=== PATIENT | female | born 1990 | race Caucasian/White ===

== ENCOUNTER 2022-08-13 16:06 | Outpatient (OUT) | payer OTHER, SELFPAY | END 2022-08-13 16:07 | PROVIDERS: PCP Obstetrics & Gynecology; Visit Provider Obstetrics & Gynecology | DX: N92.6 Irregular menstruation, unspecified (principal) | CPT/HCPCS: 36415; 84144 ==

== ENCOUNTER 2022-09-13 15:58 | Outpatient (OUT) | payer OTHER, SELFPAY ==
--- NOTE | 2022-09-13 16:06 | US_ITS ---
The [address] [address] Patient Name: EILEEN BOWER MRN: [id number] date: 1990 Sex: F Assigned Patient Location: US Current Patient Location: Accession/Order Number: [id number] Exam Date: 09/13/2022 16:07 Report Date: 09/14/2022 08:36 At the request of: MAURICE STONE Procedure: US OB transvaginal EXAMINATION: US OB transvaginal HISTORY: N92.5 MISSED MENSES COMPARISON: No relevant comparison available. FINDINGS: GESTATIONAL SAC: 2 gestational sacs within endometrial cavity. YOLK SAC: Both gestational sacs contain yolk sacs. POLE: Pole within one of the gestational sacs, and may be present within the second gestational sac along the margin and partially obscured by the yolk sac. CARDIAC: Present within the definable pole, and suspected within the second gestational sac and questionable pole. UTERUS: Normal size and appearance. OVARIES: Right: Contains a 4.6 cm anechoic cyst. Left: Not seen. CERVIX: 4.2 cm in length and closed. CUL-DE-SAC: Normal. OTHER: None. AGE BY LMP: 7 weeks 2 days ODALYS BY LMP: 04/30/2023 AGE BY US CRL: 7 weeks 1 day ODALYS BY US CRL: 05/01/2023 IMPRESSION: 1. Twin intrauterine (please see details above). Follow-up recommended. Electronically authenticated by: SHAUNA LIRA Date: 09/14/2022 08:36
== END 2022-09-13 15:59 | disposition home or self-care (01) ==
LOC: US 15:58
PROVIDERS: PCP Obstetrics & Gynecology; Visit Provider Obstetrics & Gynecology
DX: O20.9 Hemorrhage in early pregnancy, unspecified (principal); O30.041 Twin pregnancy, dichorionic/diamniotic, first trimester; Z3A.01 Less than 8 weeks gestation of pregnancy
CPT/HCPCS: 76817

== ENCOUNTER 2022-09-22 09:37 | Outpatient (OUT) | payer OTHER, SELFPAY ==
--- NOTE | 2022-09-22 09:40 | US_ITS ---
[address] [address] Patient Name: EILEEN BOWER MRN: [id number] date: 1990 Sex: F Assigned Patient Location: US Current Patient Location: Accession/Order Number: [id number] Exam Date: 09/22/2022 09:45 Report Date: 09/22/2022 19:03 At the request of: MAURICE STONE Procedure: US OB transvaginal EXAMINATION: US OB transvaginal HISTORY: MISSED PERIOD COMPARISON: Ultrasound OB transvaginal 09/13/2022 FINDINGS: GESTATIONAL SAC: Present and normal appearing x 2. YOLK SAC: Present and normal appearing x 2. POLE: Present and normal appearing x 2. CARDIAC: Present x 2. UTERUS: Normal size and appearance. OVARIES: Right: Contains a 4.7 cm anechoic simple appearing cyst; not appreciably changed Left: Normal. CERVIX: 4.8 cm in length and closed. CUL-DE-SAC: Normal. OTHER: None. AGE BY LMP: 8 weeks 4 days ODALYS BY LMP: 04/30/2023 AGE BY US CRL: Baby A: 8 weeks 3 days Baby B: 8 weeks 4 days ODALYS BY US CRL: Baby A: 05/01/2023 Baby B: 04/30/2023 US/US OB transvaginal IMPRESSION: 1. Live twin intrauterine . Electronically authenticated by: SHAUNA LIRA Date: 09/22/2022 19:03
== END 2022-09-22 09:38 | disposition home or self-care (01) ==
LOC: US 09:37
PROVIDERS: PCP Obstetrics & Gynecology; Visit Provider Obstetrics & Gynecology
DX: O30.001 Twin pregnancy, unspecified number of placenta and unspecified number of amniotic sacs, first trimester (principal); Z3A.08 8 weeks gestation of pregnancy; N92.6 Irregular menstruation, unspecified
CPT/HCPCS: 76817

== ENCOUNTER 2022-10-04 12:03 | Outpatient (OUT) | payer OTHER, SELFPAY ==
[2022-10-04 12:33] LABS: Basophils Absolute Auto 0.1 10^3/uL (0.0-0.1); Basophils Percent Auto 0.6 % (0.2-2.0); Eosinophils Absolute Auto 0.1 10^3/uL (0.0-0.7); Hematocrit 36.2 % (36.0-48.0); Hemoglobin 12.5 g/dL (12.0-16.0); Immature Granulocytes Abs Auto 0.03 10^3/uL (0.00-0.03); Immature Granulocytes Pct Auto 0.3 % (0.0-0.5); Lymphocytes Absolute Auto 3.6 10^3/uL (1.2-3.8); Lymphocytes Percent Auto 33.8 % (20.5-60.0); Mean Corpuscular HGB Conc 34.5 g/dL (29.9-35.2); Mean Corpuscular Hemoglobin 29.1 pg (26.7-34.0); Mean Corpuscular Volume 84.4 fL (81.0-99.0); Mean Platelet Volume 10.2 fL (9.5-13.5); Monocytes Absolute Auto 0.4 10^3/uL (0.3-0.8); Monocytes Percent Auto 3.5 % (1.7-12.0); Neutrophils Absolute Auto 6.4 10^3/uL (1.4-6.5); Neutrophils Percent Auto 60.8 % (43.0-75.0); Platelet Count 242 10^3/uL (150-450); Red Blood Count 4.29 10^6/uL (4.20-5.40); Red Cell Distribution Width 13.2 % (11.0-15.0); White Blood Count 10.5 10^3/uL (4.0-11.0)
[2022-10-04 13:57] LABS: Thyroid Stimulating Hormone 1.372 uIU/mL (0.358-3.740)
[2022-10-04 14:11] LABS: Estimated Average Glucose 111 mg/dL; Glycohemoglobin A1C 5.5 % (4.5-6.2)
[2022-10-05 06:30] LABS: Rubella Antibodies, IgG <0.90 index (Immune >0.99)
[2022-10-05 08:32] LABS: HBsAg Screen Negative (Negative); HCV Ab Non Reactive (Non Reactive); HIV Ab/p24 Ag Screen Non Reactive (Non Reactive)
[2022-10-05 11:09] LABS: Rapid Plasma Reagin, Quant Non Reactive (NonRea<1:1)
== END 2022-10-04 12:04 | disposition home or self-care (01) ==
LOC: LAB 12:04
PROVIDERS: PCP Obstetrics & Gynecology; Visit Provider Obstetrics & Gynecology
DX: Z34.90 Encounter for supervision of normal pregnancy, unspecified, unspecified trimester (principal); N91.2 Amenorrhea, unspecified; Z31.430 Encounter of female for testing for genetic disease carrier status for procreative management
CPT/HCPCS: 36415; 83036; 84443; 85025; 86592; 86706; 86762; 86803; 86850; 86900; 86901; 87086; 87150; 87186; 87389

== ENCOUNTER 2022-10-24 10:35 | Outpatient (OUT) | payer OTHER, SELFPAY ==
--- NOTE | 2022-10-24 10:38 | US_ITS ---
[address] [address] Patient Name: EILEEN BOWER MRN: [id number] date: 1990 Sex: F Assigned Patient Location: US Current Patient Location: US Accession/Order Number: [id number] Exam Date: 10/24/2022 10:38 Report Date: 10/24/2022 15:52 At the request of: MAURICE STONE Procedure: US OB transvaginal EXAMINATION: US OB transvaginal HISTORY: VAGINAL BLEEDING IN EARLY COMPARISON: Ultrasound OB transvaginal 09/22/2022 FINDINGS: GESTATIONAL SAC: Present and normal appearing x2. YOLK SAC: Absent x2 POLE: Present and normal appearing x2. CARDIAC: Present x2. UTERUS: Abnormal focal masslike thickening of uterine wall deep to the placenta, 4.8 x 4.5 x 3.7 cm; contraction versus old hematoma. OVARIES: Right: Not seen. Left: Not seen. CERVIX: 4.3 cm in length and closed. CUL-DE-SAC: Normal. OTHER: None. AGE BY LMP: 13 weeks 1 day ODALYS BY LMP: 04/30/2023 AGE BY US CRL: Baby 1: 13 weeks 3 days Baby 2: 13 weeks 1 day ODALYS BY US CRL: Baby 1: 04/28/2023 Baby 2: 04/30/2023 US/US OB transvaginal IMPRESSION: 1. Live twin intrauterine . 2. Masslike area within uterine wall deep to placenta; contraction versus old hematoma versus mass. Follow-up recommended. Electronically authenticated by: SHAUNA LIRA Date: 10/24/2022 15:52
== END 2022-10-24 10:36 | disposition home or self-care (01) ==
LOC: US 10:36
PROVIDERS: PCP Obstetrics & Gynecology; Visit Provider Obstetrics & Gynecology
DX: O46.91 Antepartum hemorrhage, unspecified, first trimester (principal); O30.001 Twin pregnancy, unspecified number of placenta and unspecified number of amniotic sacs, first trimester; Z3A.13 13 weeks gestation of pregnancy
CPT/HCPCS: 76817

== ENCOUNTER 2022-11-29 20:41 | Outpatient (REF) | payer OTHER, SELFPAY ==
[2022-12-04 12:08] LABS: Age Gdln ACOG Testing Note (.); HPV Aptima Negative (Negative); IGP, Aptima HPV, rfx 16/18,45 Note (.)
== END 2022-11-29 20:42 | disposition home or self-care (01) ==
LOC: LAB 20:41
PROVIDERS: PCP Obstetrics & Gynecology; Visit Provider Obstetrics & Gynecology
DX: Z01.419 Encounter for gynecological examination (general) (routine) without abnormal findings (principal)
CPT/HCPCS: G0145

== ENCOUNTER 2022-12-26 14:45 | Observation (INO) | payer OTHER, SELFPAY ==
[2022-12-26 15:14] VITALS: BP 126/79; PULSE 61; TEMP 36
--- NOTE | 2022-12-26 15:30 | US_ITS ---
[address] [address] Patient Name: EILEEN BOWER MRN: [id number] date: 1990 Sex: F Assigned Patient Location: [facility] Current Patient Location: [facility] Accession/Order Number: [id number] Exam Date: 12/26/2022 15:35 Report Date: 12/26/2022 16:56 At the request of: MAURICE STONE Procedure: US OB placenta PROCEDURE: US OB cervical length, US OB amniotic fluid vol, US OB placenta, 12/26/2022 3:35 PM EDT CLINICAL INDICATIONS: Encounter for second trimester twin , vaginal bleeding for one day, transvaginal evaluation of cervix in . Expected gestational age: 22 weeks 1 day Expected ODALYS: 04/30/2023 1 para 0 COMPARISON: None TECHNIQUE: Limited obstetric sonogram for evaluation of amniotic fluid, placenta, and cervical morphology. Grayscale, color evaluation. FINDINGS: Living twin intrauterine identified. membrane seen. FETUS A: Presenting fetus Breech presentation. body, cardiac activity noted. Heart rate 153 bpm. Grade 0 anterior placenta, no sign of previa or hemorrhage. Maximum vertical pocket 4.1 cm. FETUS B: Transverse head maternal left body, cardiac activity seen. Heart rate 138 bpm. Posterior grade 0 placenta, no previa or hemorrhage. No circumvallate placenta poorly demonstrated. Maximum vertical pocket 3.4 cm. BIOMETRY: Not performed. ANATOMIC ASSESSMENT: Not performed. CERVIX: 3.1 cm transvaginal cervical length, closed US/US OB placenta IMPRESSION: 1. Living twin intrauterine 2. Presenting. Fetus A, breech presentation, grade 0 anterior placenta, no previa or hemorrhage, maximum vertical pocket 4.1 cm. 3. Fetus B, transverse head maternal left, grade 0 posterior placenta, no previa or hemorrhage. Previously described circumvallate morphology poorly demonstrated. Maximum vertical pocket 3.4 cm. 4. 3.1 cm transvaginal cervical length, closed Electronically authenticated by: EDDA ALEXANDRA Date: 12/26/2022 16:56
--- NOTE | 2022-12-26 15:30 | US_ITS ---
[address] [address] Patient Name: EILEEN BOWER MRN: [id number] date: 1990 Sex: F Assigned Patient Location: [facility] Current Patient Location: [facility] Accession/Order Number: [id number] Exam Date: 12/26/2022 15:35 Report Date: 12/26/2022 16:56 At the request of: MAURICE STONE Procedure: US OB cervical length PROCEDURE: US OB cervical length, US OB amniotic fluid vol, US OB placenta, 12/26/2022 3:35 PM EDT CLINICAL INDICATIONS: Encounter for second trimester twin , vaginal bleeding for one day, transvaginal evaluation of cervix in . Expected gestational age: 22 weeks 1 day Expected ODALYS: 04/30/2023 1 para 0 COMPARISON: None TECHNIQUE: Limited obstetric sonogram for evaluation of amniotic fluid, placenta, and cervical morphology. Grayscale, color evaluation. FINDINGS: Living twin intrauterine identified. membrane seen. FETUS A: Presenting fetus Breech presentation. body, cardiac activity noted. Heart rate 153 bpm. Grade 0 anterior placenta, no sign of previa or hemorrhage. Maximum vertical pocket 4.1 cm. FETUS B: Transverse head maternal left body, cardiac activity seen. Heart rate 138 bpm. Posterior grade 0 placenta, no previa or hemorrhage. No circumvallate placenta poorly demonstrated. Maximum vertical pocket 3.4 cm. BIOMETRY: Not performed. ANATOMIC ASSESSMENT: Not performed. CERVIX: 3.1 cm transvaginal cervical length, closed US/US OB cervical length IMPRESSION: 1. Living twin intrauterine 2. Presenting. Fetus A, breech presentation, grade 0 anterior placenta, no previa or hemorrhage, maximum vertical pocket 4.1 cm. 3. Fetus B, transverse head maternal left, grade 0 posterior placenta, no previa or hemorrhage. Previously described circumvallate morphology poorly demonstrated. Maximum vertical pocket 3.4 cm. 4. 3.1 cm transvaginal cervical length, closed Electronically authenticated by: EDDA ALEXANDRA Date: 12/26/2022 16:56
--- NOTE | 2022-12-26 15:32 | US_ITS ---
[address] [address] Patient Name: EILEEN BOWER MRN: [id number] date: 1990 Sex: F Assigned Patient Location: [facility] Current Patient Location: [facility] Accession/Order Number: [id number] Exam Date: 12/26/2022 15:35 Report Date: 12/26/2022 16:56 At the request of: MAURICE STONE Procedure: US OB amniotic fluid vol PROCEDURE: US OB cervical length, US OB amniotic fluid vol, US OB placenta, 12/26/2022 3:35 PM EDT CLINICAL INDICATIONS: Encounter for second trimester twin , vaginal bleeding for one day, transvaginal evaluation of cervix in . Expected gestational age: 22 weeks 1 day Expected OADLYS: 04/30/2023 1 para 0 COMPARISON: None TECHNIQUE: Limited obstetric sonogram for evaluation of amniotic fluid, placenta, and cervical morphology. Grayscale, color evaluation. FINDINGS: Living twin intrauterine identified. membrane seen. FETUS A: Presenting fetus Breech presentation. body, cardiac activity noted. Heart rate 153 bpm. Grade 0 anterior placenta, no sign of previa or hemorrhage. Maximum vertical pocket 4.1 cm. FETUS B: Transverse head maternal left body, cardiac activity seen. Heart rate 138 bpm. Posterior grade 0 placenta, no previa or hemorrhage. No circumvallate placenta poorly demonstrated. Maximum vertical pocket 3.4 cm. BIOMETRY: Not performed. ANATOMIC ASSESSMENT: Not performed. CERVIX: 3.1 cm transvaginal cervical length, closed US/US OB amniotic fluid vol IMPRESSION: 1. Living twin intrauterine 2. Presenting. Fetus A, breech presentation, grade 0 anterior placenta, no previa or hemorrhage, maximum vertical pocket 4.1 cm. 3. Fetus B, transverse head maternal left, grade 0 posterior placenta, no previa or hemorrhage. Previously described circumvallate morphology poorly demonstrated. Maximum vertical pocket 3.4 cm. 4. 3.1 cm transvaginal cervical length, closed Electronically authenticated by: EDDA ALEXANDRA Date: 12/26/2022 16:56
[2022-12-26 15:52] LABS: Amnisure POSITIVE (NEGATIVE)
[2022-12-26 16:03] LABS: Bilirubin Urine NEGATIVE (NEGATIVE); Blood Urine TRACE-I (NEGATIVE); Clarity Urine CLEAR (CLEAR); Color Urine YELLOW (YELLOW); Glucose Urine UA 100 mg/dL (NEGATIVE); Ketones Urine TRACE mg/dL (NEGATIVE); Leukocyte Esterase Urine NEGATIVE (NEGATIVE); Nitrite Urine NEGATIVE (NEGATIVE); Protein Urine NEGATIVE (NEG/TRACE); Urine Microscopic Indicated YES; Urobilinogen Urine 0.2 EU/dL (0.2-1.0)
[2022-12-26 16:14] LABS: Bacteria Urine TRACE #/HPF (NONE SEEN); Cast Seen? NONE SEEN #/LPF (NONE SEEN); Crystals Seen? None Seen #/HPF (None Seen); Mucus Urine NONE SEEN (NONE SEEN); Squamous Epithelial Cell Urine RARE #/LPF (NONE/RARE); Urine Culture Indicated NO; WBC Urine NONE SEEN #/HPF (NONE SEEN)
[2022-12-26] MEDS: 0.9 % SODIUM CHLORIDE 1,000 ML 150 ML IV (19:42)
[2022-12-26] MEDS: CEFAZOLIN SODIUM/DEXTROSE,ISO 2 GM/50 ML PIGGYBACK IV (19:42)
--- NOTE | 2022-12-26 20:15 | P.OBHP_ITS ---
OB - H&P: HPI History of Present Illness Chief complaint: VAGINAL BLEEDING : 1 Para: 0 Date of last menstrual period: 07/24/2022 Gestational age based on last menstrual period: 22 1/7wks Comments: 32 yo twin gestation, diamniotic dichorionic at 22 1/7ws, presents with vaginal bleeding, and fluid gush, cl 3.1, twin b 3.4 largest pocket, twin a 4.7 largest pocket, amnisure positive thought possible false positive dt bleeding, sse, perfomed, slight pooling, positive ferning. History of Present Dating criteria: LMP confirmed by 1st trimester US care: good care Ultrasounds: normal 1st trimester US complications: other (ho gastric sleeve) complications comment: twin gestation Medical complications OB: none Labs Blood type: O (+) positive Rubella: nonimmune RPR/VDLR: nonreactive HBsAG: negative Review of Systems ROS Status of ROS 10 or more systems reviewed and unremarkable except as noted in history and below Meds Home Medications and Allergies Allergies Allergy/AdvReac Type Severity Reaction Status Date / Time lisinopril AdvReac Mild Cough Uncoded 12/26/22 19:27 Exam Constitutional Vital Signs, click to edit/add: Last Vital Signs Temp 96.8 F L 12/26/22 15:14 Pulse 61 12/26/22 15:14 BP 126/79 12/26/22 15:14 Documenting provider has reviewed patient's vital signs: yes Common normals: no apparent distress Respiratory Common normals: clear to auscultation bilaterally Cardio Common normals: regular rate and regular rhythm GI Common normals: Normal to inspection, nondistended, normoactive bowel sounds present Extremity Common normals: no calf tenderness Results Labs Labs: Urine 12/26/22 Range/Units 15:20 Urine Color Yellow (YELLOW) Urine Clarity Clear (CLEAR) Urine pH 7.0 (5.0-9.0) Ur Specific [place] 1.020 (1.005-1.025) Urine Protein Negative (NEG/TRACE) mg/dL Urine Glucose (UA) 100 A (NEGATIVE) mg/dL OB - A/P Assessment and Plan (1) Twin gestation in second trimester: Plan iup at 22 1/7wks, twin gestation, pprom, 2nd trimester vaginal bleeding-iv, iv abx, routine labs, discussed with dr james, agreed to transfer
[2022-12-26 22:30] VITALS: BP 124/87; PULSE 77
== END 2022-12-26 22:55 | disposition short-term general hospital (02) ==
PROVIDERS: Admitting Provider Obstetrics & Gynecology; PCP Obstetrics & Gynecology; Visit Provider Obstetrics & Gynecology
DX: O42.90 Premature rupture of membranes, unspecified as to length of time between rupture and onset of labor, unspecified weeks of gestation (principal); O46.92 Antepartum hemorrhage, unspecified, second trimester; O30.042 Twin pregnancy, dichorionic/diamniotic, second trimester; O99.842 Bariatric surgery status complicating pregnancy, second trimester; Z3A.22 22 weeks gestation of pregnancy
CPT/HCPCS: 76815; 76817; 81001; 84112; 96374; 96375; G0378; G0379; J0456